=== PATIENT | male | born 1960 | race Caucasian/White ===

== ENCOUNTER 2017-07-21 12:11 | Emergency (ER) | payer BC ==
[2017-07-21 12:24] VITALS: BP 172/102; PULSE 116; TEMP 97.4; BMI 27.9
[2017-07-21] MEDS ORDERED: KETOROLAC TROMETHAMINE 60 MG/2 ML VIAL IM ONE (12:57)
[2017-07-21] MEDS ORDERED: DEXAMETHASONE 4 MG TABLET (FP) PO STA (12:57)
[2017-07-21] MEDS ORDERED: KETOROLAC TROMETHAMINE 60 MG/2 ML VIAL ONE (13:00)
[2017-07-21] MEDS ORDERED: DEXAMETHASONE SOD PHOSPHATE 10 MG/1 ML VIAL ONE (13:03)
--- NOTE | 2017-07-21 13:03 | PDOC ---
History of Present Illness - General Chief Complaint: Pain Stated Complaint: RT LEG PAIN Time Seen by Provider: 07/21/17 12:47 History Source: Patient Exam Limitations: No Limitations - History of Present Illness Initial Comments: 07/21/17 12:58 Patient came to emergency department, drove himself here for reevaluation of chronic back pain. one month ago plus had an onset of worsened pain in his lower back. However has had low back pain that's progressively worsened over the past few months. Denies any recent history of,, MVC's, any exercise changes. Patient was at [facility] and given multiple different medications including any antispasmodic medication, ibuprofen with omeprazole, Percocet which she has been using intermittently. was seen by Dr. Bain last week who recommended a possible hip replacement secondary to extensive arthritis. Patient pain has progressively become worse and is uncertain as to ability to wait for 1 month to another orthopedist appointment. Patient denies recent illness, URI or gastrointestinal problems, denies numbness or tingling to hand or feet, denies any problems with bowel or bladder. Denies any history of excessive drug use or issue. 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 07/21/17 13:05 07/21/17 13:08 Severity: reports: moderate, severe Pain Location: reports: back Method of Injury: Yes: unknown Modifying Factors: improves with: None Associated Symptoms (Fall): denies symptoms Past History - Travel Traveled outside of the country in the last 30 days: No Close contact w/someone who was outside of country & ill: No - Past Medical History Allergies/Adverse Reactions: Allergies Allergy/AdvReac Type Severity Reaction Status Date / Time lisinopril AdvReac Cough Verified 07/21/17 12:24 Home Medications: Ambulatory Orders Prednisone [Deltasone -] 20 mg PO BID #10 tablet 07/21/17 HTN: Yes - Surgical History Abdominal Surgery: Yes (HERNIA) - Psycho/Social/Smoking Cessation Hx Anxiety: No Suicidal Ideation: No Smoking History: Never smoked Hx Alcohol Use: No Drug/Substance Use Hx: No Substance Use Type: None Review of Systems - Review of Systems Able to Perform ROS?: Yes Is the patient limited Malawian proficient: Yes Constitutional: Yes: Symptoms Reported, See HPI, Loss of Appetite. No: Fever, Malaise HEENTM: Yes: See HPI. No: Symptoms Reported ABD/GI: No: Symptoms Reported : No: Symptoms Reported Musculoskeletal: Yes: Symptoms Reported, See HPI, Back Pain, Joint Pain (right leg/ hip). No: Joint Swelling Integumentary: Yes: Symptoms Reported All Other Systems: Reviewed and Negative *Physical Exam - Vital Signs Last Vital Signs Temp Pulse Resp BP Pulse Ox 97.4 F L 116 H 20 172/102 99 07/21/17 12:20 07/21/17 12:20 07/21/17 12:20 07/21/17 12:07/21/17 12:20 - Physical Exam General Appearance: Yes: Nourished, Appropriately Dressed, Apparent Distress, Mild Distress, Moderate Distress HEENT: positive: MIKE, Normal ENT Inspection, TMs Normal Neck: positive: Supple. negative: Tender, Lymphadenopathy (R), Lymphadenopathy (L) Respiratory/Chest: positive: Lungs Clear, Normal Breath Sounds Gastrointestinal/Abdominal: positive: Normal Bowel Sounds, Soft Musculoskeletal: positive: Normal Inspection, Decreased Range of Motion, Muscle Spasm. negative: Vertebral Tenderness Extremity: positive: Normal Capillary Refill, Normal Inspection. negative: Normal Range of Motion Integumentary: positive: Normal Color, Dry, Warm, Pale Neurologic: positive: fish drier II-XII NML intact, Fully Oriented, Alert, Normal Mood/ Affect (Francisca appears to be agitated, will hyperventilate and cry out with excessive movement however with distraction will call him and speak in normal voice), Motor Strength 5/5 Progress Note - Progress Note Progress Note: Chronic back pain on multiple medications which patient states her minimally effective. Discussed chronic issues with back problems may not be completely solved and due to the fact patient has follow through with multiple evaluations and consultations, would recommend adding steroid for anti-inflammatory purpose. And given a dose of Toradol today. Understands will continue medications as previously prescribed and hasten follow up with [facility] for further evaluation and possible therapy. *DC/Admit/Observation/Transfer Diagnosis at time of Disposition: Chronic back pain Qualifiers: Back pain location: low back pain Back pain laterality: unspecified Sciatica presence: without sciatica Qualified Code(s): M54.5 - Low back pain; G89.29 - Other chronic pain - Discharge Dispostion Disposition: HOME Condition at time of disposition: Stable Admit: No - Referrals Referrals: Jane Bateman [Primary Care Provider] - Harvey Urban MD [Staff Physician] - - Patient Instructions Printed Discharge Instructions: Managing Chronic Low Back Pain Additional Instructions: Rest, no heavy lifting or exercise until pain is resolved Hot soaks to neck and low back as often as possible/hot showers or Jacuzzis No massage or therapy until spasm is gone Continue back pain medication as previously prescribed Prednisone starting tomorrow as directed for additional anti-inflammatory purpose Call [facility] if appointment available with orthopedist this week for further evaluation and possible earlier intervention If not significant improvement within 24 hours with medication and rest regime, followup with private physician for change in medications and /or therapy.
== END 2017-07-21 13:23 | disposition home or self-care (01) ==
LOC: JERFT 12:11
PROC: 3E0233Z Introduction of Anti-inflammatory into Muscle, Percutaneous Approach (ICD-10-PCS; principal; 2017-07-21)
DX: M54.5 Low back pain (principal); G89.29 Other chronic pain; I10 Essential (primary) hypertension
CPT/HCPCS: 99281-25